=== PATIENT | female | born 1960 | race Caucasian/White ===

== ENCOUNTER 2020-07-24 19:29 | Emergency (ER) | payer OTHER ==
[~2020-07-24] VITALS: Ht 165.1 cm; Wt 105.9 kg
[2020-07-24] MEDS ORDERED: METF-441 PO (20:05)
[2020-07-24] MEDS ORDERED: ASPI-1420 PO (20:05)
[2020-07-24] MEDS ORDERED: GLYB5TAB7 PO (20:05)
[2020-07-24] MEDS ORDERED: ATOR20TA PO (20:05)
[2020-07-24 21:28] LABS: *BILIRUBIN,URIN NEGATIVE (NEGATIVE); *BLOOD, URINE NEGATIVE (NEGATIVE); *CLARITY,URINE CLEAR (CLEAR); *COLOR,URINE YELLOW (YELLOW); *KETONES,URINE TRACE (NEGATIVE); *UROBILINOGEN,URINE 0.2 E.U./dl (NORMAL); LEUKOCYTE ESTERASE ,URINE NEGATIVE (NEGATIVE); NITRITE, URINE NEGATIVE (NEGATIVE); UGLUCOSE 2+ (NEGATIVE)
[2020-07-24] MEDS ORDERED: HYDROCODONE/APAP 10-325 MG TABLET PO ONE (21:45)
[2020-07-24 21:49] VITALS: BP 118/49
--- NOTE | 2020-07-24 21:49 | NUR ---
Patient discharged to home in stable condition. Written and verbal after care instructions given. Patient verbalizes understanding of instructions. Stressed follow up or return to ER for worsening s/s.PT IS NOT DRIVING, PT IS CALLING TAXI.
[2020-07-24] MEDS ORDERED: HYDROCODONE/APAP 10-325 MG TABLET ONE (21:52)
== END 2020-07-24 21:51 | disposition home or self-care (01) ==
LOC: ER 19:29
DX: M54.9 Dorsalgia, unspecified (principal); M51.36 Other intervertebral disc degeneration, lumbar region; Z79.82 Long term (current) use of aspirin; Z79.899 Other long term (current) drug therapy; Z88.0 Allergy status to penicillin; E78.5 Hyperlipidemia, unspecified; Z86.73 Personal history of transient ischemic attack (TIA), and cerebral infarction without residual deficits; E11.9 Type 2 diabetes mellitus without complications; Z79.84 Long term (current) use of oral hypoglycemic drugs
CPT/HCPCS: A4663

== ENCOUNTER 2020-12-06 17:43 | Emergency (ER) | payer OTHER ==
[~2020-12-06] VITALS: Ht 165.1 cm; Wt 106.6 kg
[~2020-12-06 17:43] MED LIST: ASPI-1420 PO; ATOR20TA PO; GLYB5TAB7 PO; METF-441 PO
--- NOTE | 2020-12-06 17:56 | NUR ---
Dr Martinez at the bedside for MSE.
[2020-12-06] MEDS ORDERED: ONDANSETRON 4 MG/2 ML VIAL ONE (18:08)
[2020-12-06] MEDS ORDERED: IV NORMAL SALINE 1000 ML BAG IV ONE (18:15)
[2020-12-06] MEDS ORDERED: ONDANSETRON 4 MG/2 ML VIAL IV ONE (18:15)
[2020-12-06 18:20] LABS: MEAN CORPUSCULAR HEMOGLOBIN 27.3 uug (24.7-32.8); MEAN CORPUSCULAR VOLUME 87.5 fL (75.5-95.3); PLATELET COUNT (AUTO) 384 K/uL (179-408)
[2020-12-06 18:29] LABS: POTASSIUM 4.9 mmol/L (3.5-5.1)
[2020-12-06 18:35] LABS: BILIRUBIN,DIRECT 0.1 mg/dL (0.0-0.2); BILIRUBIN,TOTAL 0.4 mg/dL (0.2-1.0); TOTAL PROTEIN, SERUM 7.8 g/dL (6.4-8.2)
[2020-12-06] MEDS ORDERED: MECLIZINE HCL 25 MG TABLET PO ONE (18:45)
[2020-12-06] MEDS ORDERED: MECLIZINE HCL 25 MG TABLET ONE (18:50)
--- NOTE | 2020-12-06 19:00 | NUR ---
Handsoff report given to Gretta TAPIA.
--- NOTE | 2020-12-06 19:05 | NUR ---
Recieved report from REGINA Laguerre. Pt in bed, stable,resting.
[2020-12-06] MEDS ORDERED: ACETAMINOPHEN ES 500 MG TABLET PO ONE (19:15)
[2020-12-06] MEDS ORDERED: HYDROCODONE/APAP 5-325MG TABLET PO ONE (19:15)
[2020-12-06] MEDS ORDERED: HYDROCODONE/APAP 5-325MG TABLET ONE (19:22)
[2020-12-06] MEDS ORDERED: MECL-159 PO (19:43)
[2020-12-06] MEDS ORDERED: ONDA4TAB5 PO (19:43)
--- NOTE | 2020-12-06 20:16 | NUR ---
Patient discharged to home in stable condition. Written and verbal after care instructions given. Patient verbalizes understanding of instructions. Stressed follow up or return to ER for worsening s/s.Steady gait. No c/o n/v or dizziness.
[2020-12-06 20:41] VITALS: BP 128/67
== END 2020-12-06 20:18 | disposition home or self-care (01) ==
LOC: ER 17:47
DX: R42 Dizziness and giddiness (principal); E11.65 Type 2 diabetes mellitus with hyperglycemia; Z79.84 Long term (current) use of oral hypoglycemic drugs; E89.0 Postprocedural hypothyroidism; E78.5 Hyperlipidemia, unspecified; Z86.73 Personal history of transient ischemic attack (TIA), and cerebral infarction without residual deficits; Z79.82 Long term (current) use of aspirin; Z79.899 Other long term (current) drug therapy; R03.0 Elevated blood-pressure reading, without diagnosis of hypertension
CPT/HCPCS: 36415; 71045; 80048; 80076; 83605; 83690; 84484; 85025; 85730; 87040; 93005; 96361; 96374; 99285; J2405; 70030-TC; A4663; J8597

== ENCOUNTER 2022-01-21 18:21 | Inpatient (IN) | payer OTHER ==
[~2022-01-21] VITALS: Ht 165.1 cm; Wt 89.8 kg
[~2022-01-21 18:21] MED LIST changes: +MECL-159 PO; +ONDA4TAB5 PO
--- NOTE | 2022-01-21 19:26 | NUR ---
pt in room 4a. pt c/o right shoulder pain after cleaning house. Dr. Hudson in room for [facility].
[2022-01-21] MEDS ORDERED: HYDROMORPHONE 1 MG/1 ML DISP.SYRIN IV ONE (19:45)
[2022-01-21] MEDS ORDERED: LORAZEPAM 2 MG/1 ML VIAL IV ONE (19:45)
[2022-01-21] MEDS ORDERED: ASPIRIN 81 MG TAB.CHEW PO ONE (19:45)
[2022-01-21] MEDS ORDERED: ASPIRIN 81 MG TAB.CHEW ONE (19:56)
[2022-01-21] MEDS ORDERED: LORAZEPAM 2 MG/1 ML VIAL ONE (19:57)
[2022-01-21] MEDS ORDERED: HYDROMORPHONE 1 MG/1 ML DISP.SYRIN ONE (19:57)
[2022-01-21 20:18] LABS: HEMATOCRIT 38.3 % (31.2-41.9); MEAN CORPUSCULAR HEMOGLOBIN 27.7 uug (24.7-32.8); MEAN CORPUSCULAR VOLUME 87.3 fL (75.5-95.3); PLATELET COUNT (AUTO) 379 K/uL (179-408)
--- NOTE | 2022-01-21 20:28 | NUR ---
pt went for cat scan.
[2022-01-21 20:31] LABS: CARBON DIOXIDE 31 mmol/L (21-32); CHLORIDE 100 mmol/L (98-107); CREATININE 1.2 mg/dL (0.6-1.3); GLUCOSE 110 mg/dL (74-106); POTASSIUM 4.9 mmol/L (3.5-5.1); UREA NITROGEN, BLOOD 22 mg/dL (7-18)
--- NOTE | 2022-01-21 20:42 | NUR ---
pt returned from cat scan. tech is here for ultrasound.
[2022-01-21 20:44] LABS: ALANINE AMINOTRANSFERASE 26 U/L (14-59); ALKALINE PHOSPHATASE 128 U/L (50-136); ASPARTATE AMINOTRANSFERASE 11 U/L (15-37); BILIRUBIN,DIRECT 0.1 mg/dL (0.0-0.2); BILIRUBIN,TOTAL 0.2 mg/dL (0.2-1.0); TOTAL PROTEIN, SERUM 7.6 g/dL (6.4-8.2)
[2022-01-21] MEDS ORDERED: PRAV20TA4 PO (22:18)
[2022-01-21] MEDS ORDERED: EMPA25TA PO (22:18)
[2022-01-21] MEDS ORDERED: INSU100I35 SQ (22:18)
[2022-01-21] MEDS ORDERED: GABA-532 PO (22:18)
[2022-01-21] MEDS ORDERED: DULA0.75 SQ (22:18)
[2022-01-21] MEDS ORDERED: FERR325T28 PO (22:18)
[2022-01-21] MEDS ORDERED: LOSA1TAB36 PO (22:18)
[2022-01-21] MEDS ORDERED: CALC-343 PO (22:18)
[2022-01-21] MEDS ORDERED: MV-M1TAB18 PO (22:18)
--- NOTE | 2022-01-21 22:30 | NUR ---
spoke with Clau at [facility] [phone] gave clinical information on the pt. Per Dr. Hudson pt is R/O stroke Right arm numbness.
--- NOTE | 2022-01-21 23:16 | NUR ---
Arturo called from [facility] he is a nurse disease case manager he was requesting information. I told him I already spoke with Clau at [facility]. He states he will call her.
--- NOTE | 2022-01-22 00:30 | NUR ---
Dr. Hudson spoke with [employer] Marcel Bennett for admission orders.
--- NOTE | 2022-01-22 00:38 | NUR ---
called to the third floor was told they do not have a charge nurse and they will call back with a bed assignment and nurse.
--- NOTE | 2022-01-22 00:49 | NUR ---
pt ambulatory without assist to the bathroom.
[2022-01-22] MEDS ORDERED: ACETAMINOPHEN 325 MG TABLET PO PRN (01:15)
[2022-01-22] MEDS ORDERED: NITROGLYCERIN 0.4 MG/TAB BOTTLE SL ONE (01:15)
[2022-01-22] MEDS ORDERED: MAGNESIUM HYDROXIDE 30 ML LIQUID UDC PO PRN (01:15)
[2022-01-22] MEDS ORDERED: DEXTROSE 50% 50 ML DISP.SYRIN IV PRN (01:15)
[2022-01-22] MEDS ORDERED: ENOXAPARIN SODIUM 40 MG/0.4 ML DISP.SYRIN SQ SCH ×2 (01:15→21:00)
[2022-01-22] MEDS ORDERED: REMEDY ESSENTIAL ZINC PASTE 113 GM TP PRN (01:15)
[2022-01-22] MEDS ORDERED: ONDANSETRON 4 MG/2 ML VIAL IV PRN (01:15)
--- NOTE | 2022-01-22 01:27 | NUR ---
was informed that the pt will go to room 301 and the nurse will be Nunu.
--- NOTE | 2022-01-22 01:41 | NUR ---
report given to Nunu TAPIA. pt will go to room 329 bed B.
--- NOTE | 2022-01-22 02:03 | NUR ---
pt was transported via w/c to room 329 b. REGINA Eddy in room to receive the pt.
--- NOTE | 2022-01-22 02:05 | NUR ---
Admitted this 61 y/o female from ER via w/c accompanied by ER nurse. Awake, alert and oriented x 3, able to relate needs to staff. Denies any pain/discomforts at this time. In no acute distress. IV access to right wrist intact and patent. Oriented to staffs, room, bed, TV remote and call light. Routine admission care done, plan of care initiated. Needs assessed and attended to.
[2022-01-22 02:24] VITALS: BP 131/63
--- NOTE | 2022-01-22 02:30 | NUR ---
Patient in bed awake, denies chest pain.
[2022-01-22 04:55] VITALS: BP 120/52
[2022-01-22] MEDS: PANTOPRAZOLE SODIUM 40 MG TABLET.DR PO SCH (06:28)
[2022-01-22] MEDS: BLOOD SUGAR DIAGNOSTIC 1 EACH STRIP VI SCH ×4 (07:39→21:50)
[2022-01-22] MEDS: GABAPENTIN 100 MG CAPSULE PO SCH ×2 (08:12→16:30)
[2022-01-22] MEDS: HYDROCHLOROTHIAZIDE 25 MG TABLET PO SCH (08:12)
[2022-01-22] MEDS: ASPIRIN EC 81 MG TABLET.DR PO SCH (08:12)
[2022-01-22] MEDS: LOSARTAN POTASSIUM 50 MG TABLET PO SCH (08:13)
[2022-01-22] MEDS: INSULIN REGULAR, HUMAN 300 UNIT/3 ML VIAL SQ PRN ×4 (08:20→21:54)
[2022-01-22] MEDS ORDERED: LORAZEPAM 0.5 MG TABLET PO PRN (10:00)
[2022-01-22] MEDS ORDERED: HYDROMORPHONE 1 MG/1 ML DISP.SYRIN IV PRN (10:00)
[2022-01-22] MEDS: CYCLOBENZAPRINE HCL 10 MG TABLET PO PRN ×2 (10:54→21:50)
[2022-01-22 11:30] VITALS: BP 133/54
[2022-01-22 15:15] VITALS: BP 103/50
--- NOTE | 2022-01-22 19:30 | NUR ---
Patient alert oriented, no sob no chest pain, but complain of right side of the chest area thru the back, will give meds as ordered. Patient on tele monitor sinus rhythm, cont to monitor.
[2022-01-22 19:46] VITALS: BP 107/48
[2022-01-22] MEDS ORDERED: SIMVASTATIN 10 MG TABLET PO SCH (21:00)
[2022-01-23 00:01] VITALS: BP 116/49
[2022-01-23 04:30] VITALS: BP 115/51
[2022-01-23] MEDS: BLOOD SUGAR DIAGNOSTIC 1 EACH STRIP VI SCH (05:55)
[2022-01-23] MEDS: PANTOPRAZOLE SODIUM 40 MG TABLET.DR PO SCH (05:56)
[2022-01-23 06:23] LABS: CREATININE 1.1 mg/dL (0.6-1.3); POTASSIUM 4.1 mmol/L (3.5-5.1)
[2022-01-23 06:27] LABS: HEMATOCRIT 37.3 % (31.2-41.9); PLATELET COUNT (AUTO) 322 K/uL (179-408)
[2022-01-23 06:29] LABS: MAGNESIUM 2.1 mg/dL (1.8-2.4); PHOSPHOROUS 3.9 mg/dL (2.5-4.9)
[2022-01-23 06:38] LABS: THYROID STIMULATING HORMONE 0.574 mIU/mL (0.358-3.740)
--- NOTE | 2022-01-23 06:44 | NUR ---
Patient asleep but arousable, no sob no chest pain, no further complain of right arm pain, V/S stable, accucheck done, patient refused Lovenox SQ, cont to monitor.
[2022-01-23] MEDS: INSULIN REGULAR, HUMAN 300 UNIT/3 ML VIAL SQ PRN (07:31)
[2022-01-23 08:01] VITALS: BP 115/51
[2022-01-23] MEDS: ASPIRIN EC 81 MG TABLET.DR PO SCH (08:01)
[2022-01-23] MEDS: HYDROCHLOROTHIAZIDE 25 MG TABLET PO SCH (08:01)
[2022-01-23] MEDS: LOSARTAN POTASSIUM 50 MG TABLET PO SCH (08:01)
[2022-01-23] MEDS: GABAPENTIN 100 MG CAPSULE PO SCH (08:01)
[2022-01-23] MEDS ORDERED: ENOXAPARIN SODIUM 40 MG/0.4 ML DISP.SYRIN SQ SCH (09:00)
--- NOTE | 2022-01-23 11:01 | NUR ---
dc orders received noted and carried out.dc instruction and education given to the pt ,pt said she will follow up with her pcp .dc heplock per md orders.pt left the facility via private car in stable condition
== END 2022-01-23 11:00 | disposition home or self-care (01) | DRG 351 ==
LOC: ER 18:21 → TELE3 01-22 01:42
PROVIDERS: ADMIT Internal Medicine; ATTEND Internal Medicine
DX: S46.911A Strain of unspecified muscle, fascia and tendon at shoulder and upper arm level, right arm, initial encounter (principal); E11.42 Type 2 diabetes mellitus with diabetic polyneuropathy; M62.838 Other muscle spasm; M75.41 Impingement syndrome of right shoulder; I10 Essential (primary) hypertension; Z79.84 Long term (current) use of oral hypoglycemic drugs; Z86.73 Personal history of transient ischemic attack (TIA), and cerebral infarction without residual deficits; R07.89 Other chest pain; X58.XXXA Exposure to other specified factors, initial encounter; Y93.9 Activity, unspecified; Y92.009 Unspecified place in unspecified non-institutional (private) residence as the place of occurrence of the external cause; Z20.822 Contact with and (suspected) exposure to COVID-19
CPT/HCPCS: 36415; 70450; 71045; 83735; 84100; 84443; 84484; 85025; 85730; 93005; 93307; 97161; A4663; G0378; J1170; J1650; J1815; J2060

== ENCOUNTER 2023-03-10 15:10 | Emergency (ER) | payer MEDICAID, OTHER ==
[~2023-03-10] VITALS: Ht 165.1 cm; Wt 90.7 kg
[~2023-03-10 15:10] MED LIST changes: -ATOR20TA PO; +CALC-343 PO; +DULA0.75 SQ; +EMPA25TA PO; +FERR325T28 PO; +GABA-532 PO; -GLYB5TAB7 PO; +INSU100I35 SQ; +LOSA1TAB36 PO; -MECL-159 PO; +MV-M1TAB18 PO; -ONDA4TAB5 PO; +PRAV20TA4 PO
[2023-03-10 15:23] VITALS: O2SAT 99
[2023-03-10 15:55] LABS: *BLOOD, URINE NEGATIVE (NEGATIVE); *CLARITY,URINE SLIGHTLY CLOUDY (CLEAR); *COLOR,URINE YELLOW (YELLOW); *KETONES,URINE 1+ (NEGATIVE); *PROTEIN,URINE 1+ (NEGATIVE); *UROBILINOGEN,URINE 0.2 E.U./dl (NORMAL); LEUKOCYTE ESTERASE ,URINE NEGATIVE (NEGATIVE); NITRITE, URINE NEGATIVE (NEGATIVE)
[2023-03-10 16:01] LABS: *BILIRUBIN,URIN 1+ (NEGATIVE); UGLUCOSE 2+ (NEGATIVE)
[2023-03-10] MEDS ORDERED: KETOROLAC TROMETHAMINE 15 MG INJ IVP ONE (16:30)
[2023-03-10] MEDS ORDERED: METOCLOPRAMIDE HCL 10 MG/2 ML VIAL IV ONE (16:30)
[2023-03-10] MEDS ORDERED: METOCLOPRAMIDE HCL 10 MG/2 ML VIAL ONE (16:41)
[2023-03-10] MEDS ORDERED: KETOROLAC TROMETHAMINE 15 MG INJ ONE (16:41)
[2023-03-10 16:43] LABS: BACTERIA,URINE MANY /HPF (NONE SEEN); RBC,URINE NONE SEEN /HPF (0-3); SQUAMOUS EPITHELIAL CELL,UR MANY /HPF (NONE SEEN)
[2023-03-10 16:45] LABS: BASOPHILS # (AUTO) 0.1 K/UL (0.0-0.2); EOSINOPHILS # (AUTO) 0.1 K/uL (0.0-0.7); EOSINOPHILS % (AUTO) 0.9 % (0.0-7.0); HEMATOCRIT 34.8 % (31.2-41.9); LYMPHOCYTES # (AUTO) 2.1 K/uL (0.8-4.8); LYMPHOCYTES % (AUTO) 18.5 % (20.5-51.5); MEAN CORPUSCULAR HEMOGLOBIN 27.6 uug (24.7-32.8); MEAN CORPUSCULAR HGB CONC 32 g/dL (32.3-35.6); MEAN CORPUSCULAR VOLUME 87.4 fL (75.5-95.3); MONOCYTES % (AUTO) 8.7 % (0.0-11.0); NEUTROPHILS # (AUTO) 8.1 K/uL (1.8-8.9); NEUTROPHILS % (AUTO) 70.9 % (38.5-71.5); PLATELET COUNT (AUTO) 281 K/uL (179-408); RED BLOOD CELL COUNT(AUTO) 3.98 MIL/uL (3.63-4.92); RED CELL DISTRIBUTION WIDTH 16.3 % (12.3-17.7); WHITE BLOOD COUNT (AUTO) 11.4 K/uL (3.8-11.8)
[2023-03-10 16:51] LABS: DIFFERENTIAL COMMENT 1
[2023-03-10 17:13] LABS: ALANINE AMINOTRANSFERASE 19 U/L (14-59); ALBUMIN 3.1 g/dL (3.4-5.0); ALKALINE PHOSPHATASE 126 U/L (50-136); ASPARTATE AMINOTRANSFERASE < 5 U/L (15-37); BILIRUBIN,DIRECT < 0.1 mg/dL (0.0-0.2); BILIRUBIN,TOTAL 0.2 mg/dL (0.2-1.0); CALCIUM 9.4 mg/dL (8.5-10.1); CARBON DIOXIDE 28 mmol/L (21-32); CHLORIDE 99 mmol/L (98-107); CREATININE 1.1 mg/dL (0.6-1.3); GLUCOSE 305 mg/dL (74-106); LIPASE 49 U/L (73-393); POTASSIUM 4.7 mmol/L (3.5-5.1); SODIUM SERUM 136 mmol/L (136-145); TOTAL PROTEIN, SERUM 6.9 g/dL (6.4-8.2); UREA NITROGEN, BLOOD 20 mg/dL (7-18)
[2023-03-10] MEDS ORDERED: CIPR-262 PO (18:53)
[2023-03-10] MEDS ORDERED: IBUP-1957 PO (18:53)
[2023-03-10] MEDS ORDERED: METR500T PO (18:53)
== END 2023-03-10 19:06 | disposition home or self-care (01) ==
LOC: ER 15:10
DX: K57.32 Diverticulitis of large intestine without perforation or abscess without bleeding (principal); R07.89 Other chest pain; E11.9 Type 2 diabetes mellitus without complications; Z90.89 Acquired absence of other organs; Z88.0 Allergy status to penicillin; Z79.1 Long term (current) use of non-steroidal anti-inflammatories (NSAID); Z79.2 Long term (current) use of antibiotics; Z79.4 Long term (current) use of insulin; Z79.899 Other long term (current) drug therapy
CPT/HCPCS: 99285; 74176; 96374; 71045; 96375; 80076; 80048; 81001; 83690; 85025; 87040 ×2; 36415; 93005; 83605; 87086; J1885; J2765; J7040; A4663